=== PATIENT | male | born 1935 | race Two or more races ===

== ENCOUNTER 2018-05-13 18:04 | Emergency (ER) | payer OTHER ==
[~2018-05-13] VITALS: Ht 170.2 cm; Wt 63.5 kg
[~2018-05-13 18:04] MED LIST: CLARITIN10 MG PO; DIFLUCAN400 MG/200 IV; GLIMEPIRIDE2 MG PO; GLUCOPHAGE XR500 MG PO; LEVAQUIN250 MG/10 PO; PROTONIX40 MG PO
== END 2018-05-13 21:49 | disposition home or self-care (01) ==
LOC: ER 18:04
DX: S00.83XA Contusion of other part of head, initial encounter (principal); S19.89XA Other specified injuries of other specified part of neck, initial encounter; W18.09XA Striking against other object with subsequent fall, initial encounter; Y93.89 Activity, other specified; Y92.018 Other place in single-family (private) house as the place of occurrence of the external cause; Y99.8 Other external cause status

== ENCOUNTER 2018-10-18 17:43 | Emergency (ER) | payer OTHER ==
[~2018-10-18] VITALS: Ht 172.7 cm; Wt 59.0 kg
== END 2018-10-18 20:38 | disposition home or self-care (01) ==
LOC: ER 17:43
DX: S61.522A Laceration with foreign body of left wrist, initial encounter (principal); S61.217A Laceration without foreign body of left little finger without damage to nail, initial encounter; W26.8XXA Contact with other sharp object(s), not elsewhere classified, initial encounter; Y93.G1 Activity, food preparation and clean up; Y92.010 Kitchen of single-family (private) house as the place of occurrence of the external cause; Y99.8 Other external cause status

== ENCOUNTER 2020-02-24 15:40 | Inpatient (IN) | payer OTHER ==
[~2020-02-24] VITALS: Ht 170.2 cm; Wt 68.0 kg
== END 2020-03-01 23:30 | disposition home or self-care (01) | DRG 684 ==
LOC: ER 15:40 → MEDJ 02-25 11:11
PROVIDERS: ADMIT Internal Medicine; ATTEND Internal Medicine
PROC: BW28ZZZ Computerized Tomography (CT Scan) of Head (ICD-10-PCS; 2020-02-24)
PROC: 4A12X4Z Monitoring of Cardiac Electrical Activity, External Approach (ICD-10-PCS; principal; 2020-02-25)
PROC: B24BZZZ Ultrasonography of Heart with Aorta (ICD-10-PCS; 2020-02-25)
DX: N17.8 Other acute kidney failure (principal); E86.0 Dehydration; E11.9 Type 2 diabetes mellitus without complications; I25.10 Atherosclerotic heart disease of native coronary artery without angina pectoris; Z74.01 Bed confinement status; R77.8 Other specified abnormalities of plasma proteins; Z20.822 Contact with and (suspected) exposure to COVID-19; I51.9 Heart disease, unspecified; I10 Essential (primary) hypertension